=== PATIENT | male | born 1980 | race Caucasian/White ===

== ENCOUNTER 2023-03-13 18:33 | Inpatient (IN) | payer MEDICAID ==
[~2023-03-13] VITALS: Ht 180.3 cm; Wt 80.0 kg
--- NOTE | 2023-03-13 18:40 | NUR ---
pt recieved 80mg propofol pushes IV en route by [facility] physician on ambulance and precedex gtt started (4mcg/ml concentration) at 1mcg/kg/hr enroute. pt also recieved 1L NS IV bolus enroute.
[2023-03-13] MEDS ORDERED: propofol 1000mg/100ml bottle 100 ML IV ONE (18:43)
[2023-03-13] MEDS ORDERED: normal saline 1000ml 1,000 ML IV ONE (18:45)
[2023-03-13] MEDS ORDERED: propofol 1000mg/100ml bottle 100 ML IV PRN (19:00)
--- NOTE | 2023-03-13 19:03 | NUR ---
ICU CONSULT PUT IN. AWAITING CONNECTION THROUGH TELE COMMUNICATION.
[2023-03-13 19:05] LABS: BASOPHILS % (AUTO) 0.2 % (0-1); EOSINOPHILS % (AUTO) 0.1 % (0-6); HEMATOCRIT 42.1 % (42.0-52.0); HEMOGLOBIN 13.9 g/dl (14.0-17.9); LYMPHOCYTES # (AUTO) 0.8 X10'3 (1.1-4.8); LYMPHOCYTES % (AUTO) 7.5 % (21-51); MEAN CORPUSCULAR HEMOGLOBIN 28.9 PG (27.0-31.0); MEAN CORPUSCULAR VOLUME 87.6 FL (78-98); MONOCYTES # (AUTO) 0.2 X10'3 (0-0.9); MONOCYTES % (AUTO) 1.7 % (2-12); NEUTROPHILS % (AUTO) 90.5 % (42-75); PLATELET COUNT 241 X10'3 (140-440)
[2023-03-13 19:16] LABS: ALANINE AMINOTRANSFERASE 32 U/L (12-78); ALBUMIN 3.3 G/DL (3.4-5.0); ALBUMIN/GLOBULIN RATIO 1.2 (1.1-1.5); ALKALINE PHOSPHATASE 62 IU/L (46-116); ANION GAP 12 (8-16); ASPARTATE AMINO TRANSFERASE 55 U/L (10-37); BILIRUBIN,TOTAL 0.8 MG/DL (0.1-1.0); BLOOD UREA NITROGEN 19 MG/DL (7-18); BUN/CREATININE RATIO 23.2 (10.0-20.0); CALCIUM 7.5 MG/DL (8.5-10.1); CHLORIDE 110 MMOL/L (99-107); CREATININE 0.82 MG/DL (0.60-1.10); GLUCOSE 120 MG/DL (70-104); POTASSIUM 4.2 MMOL/L (3.5-5.1); SODIUM 142 MMOL/L (135-145); TOTAL CARBON DIOXIDE 19.8 MMOL/L (24-32); TOTAL PROTEIN 6.1 G/DL (6.4-8.2); eGFR > 90 ML/MIN
[2023-03-13 19:18] LABS: APTT 30 SECONDS (22-32)
[2023-03-13] MEDS: dexmedetomidin/NS 400mcg/100ml 100 ML IV SCH (19:25)
[2023-03-13 19:26] LABS: LIPASE < 50 U/L (73-393); MAGNESIUM 1.7 MG/DL (1.5-2.4)
[2023-03-13 19:26] LABS: ABG BASE EXCESS -5.6 mmol/L (-2.0-2.0); ABG HCO3 18.9 mmol/L (22.0-26.0); ABG OXYGEN SATURATION 98.8 % (94-97); ABG PCO2 (T) 34.6 mmHg (35.0-48.0); ABG PO2 (T) 179.4 mmHg (75.0-100.0); ALLEN'S TEST Modified; FCOHb 0.1 % (0.0-3.9); FMetHb 0.4 % (0.0-1.5); FO2Hb 98.3 % (94-97); TOTAL HEMOGLOBIN 15.2 G/dl (14.0-17.9)
--- NOTE | 2023-03-13 19:26 | NUR ---
ICU CONSULT SENT OUT AGAIN DUE TO NO RESPONSE.
[2023-03-13 19:28] LABS: CKMB RELATIVE INDEX 3.3 RATIO (0-2.5); CREATINE KINASE 1331 U/L (39-308); ETHANOL < 0.010 GM/DL (0.0-0.010)
[2023-03-13 19:45] LABS: CLARITY,URINE CLEAR (Clear); COLOR,URINE YELLOW (Yellow); GLUCOSE, URINE NEGATIVE (Neg); KETONES,URINE NEGATIVE (Neg); LEUKOCYTE ESTERASE ,URINE NEGATIVE (Neg); NITRITES, URINE NEGATIVE (Neg); OCCULT BLOOD,URINE TRACE-INTACT (Neg); PROTEIN,URINE NEGATIVE (Neg); UROBILINOGEN,URINE 0.2 E.U/dL (0.2-1.0)
[2023-03-13] MEDS ORDERED: haloperidol lactate 5mg/ml inj IM PRN (19:50)
[2023-03-13 19:59] LABS: URINE AMPHETAMINE SCREEN POSITIVE (Neg); URINE BARBITUATE SCREEN NEGATIVE (Neg); URINE BENZODIAZEPINES SCREEN POSITIVE (Neg); URINE CANNABINOID SCREEN POSITIVE (Neg); URINE COCAINE SCREEN NEGATIVE (Neg); URINE METHADONE SCREEN NEGATIVE (Neg); URINE OPIATE SCREEN NEGATIVE (Neg); URINE PHENCYCLIDINE SCREEN NEGATIVE (Neg)
[2023-03-13 20:07] LABS: UA COLLECTION TYPE FOLEY CATH
[2023-03-13 20:09] LABS: BACTERIA,URINE NONE SEEN /HPF (Neg); RBC,URINE 0-2 /HPF (0-2); SQUAMOUS EPITHELIAL CELL,UR NONE SEEN /LPF (FEW); WBC,URINE 0-4 /HPF (0-4)
[2023-03-13] MEDS: dextrose 5%-lactated ringers 1,000 ML IV SCH (20:20)
--- NOTE | 2023-03-13 20:49 | NUR ---
PT RETURNED TO ROOM FROM CT, MD SHETTY AWARE OF LOW HR RANGE FROM 34 TO 52, STATES ITS DUE TO PRECEDEX GTT. PT AGITATED AT CT, PRECEDEX GTT INCREASED.
[2023-03-13] MEDS ORDERED: sodium bicarbonate (8.4%) inj. 1 MEQ/ML ML ONE (21:03)
[2023-03-13] MEDS ORDERED: sodium bicarbonate (8.4%) inj. 1 MEQ/ML ML IV ONE (21:10)
[2023-03-13] MEDS ORDERED: BUPR1FIL3 SL (21:51)
[2023-03-13] MEDS ORDERED: IBUP-1984 PO (21:51)
[2023-03-13] MEDS ORDERED: FLO0.4C PO (21:51)
[2023-03-13] MEDS ORDERED: AMLO5TAB16 PO (21:51)
--- NOTE | 2023-03-13 22:58 | NUR ---
DR MENDOZA NOTIFIED OF CONTINUED LOW HR DOWN TO [address] MENDOZA, DECREASE PRECEDEX FURTHER AND GIVE HALDOL PRN FOR AGITATION. NO NEW ORDERS RECIEVED. PT AGITATED WITH LAB DRAW FOR BLOOD CULTURES BUT DOES CALM DOWN AFTER TO RASS 0.
--- NOTE | 2023-03-13 23:09 | NUR ---
PT REPOSITIONED IN BED, PT LAYING ON LEFT SIDE, PILLOWS PLACED UNDER ARMS AND HEELS FLOATED. SCDS APPLIED TO BILAT LEGS.
--- NOTE | 2023-03-14 00:59 | NUR ---
pt repositioned to back, heels floated, soft restraints in place. warm blankets given.
--- NOTE | 2023-03-14 03:00 | NUR ---
pt repositioned self in bed back to left side. spontaneous respirations, restraints in place, scds on and heels floated.
--- NOTE | 2023-03-14 05:00 | NUR ---
pt repositioned to back, spontaneous respirations.
--- NOTE | 2023-03-14 05:20 | NUR ---
pt repositioned self back to left side, spontaneous respirations, when this rn attempted to reposition legs, pt moved both legs to positon of comfort, heels floated.
--- NOTE | 2023-03-14 05:40 | NUR ---
icu rm assigned for after shift change, unable to call report to floor a this time.
[2023-03-14] MEDS: dextrose 5%-lactated ringers 1,000 ML IV SCH ×3 (06:17→23:57)
--- NOTE | 2023-03-14 06:41 | NUR ---
SBAR TO RUDI, RN. PT NOT GOING TO ICU YET.
[2023-03-14] MEDS: dexmedetomidin/NS 400mcg/100ml 100 ML IV SCH (07:20)
--- NOTE | 2023-03-14 07:46 | NUR ---
RN TOOK PT HOME MED SUBOXONE TO PHARMACY FOR SAFE KEEPING. 1- 12MG/3MG AND 7- 8MG/2MG TAKEN BAG #[id number].
--- NOTE | 2023-03-14 07:54 | NUR ---
PT IS DROWSY IN GURNEY/SLEEPING INTERM/TOSSING/STILL WAKING PULLING AT IV LINES AND AVALOS. RN CALLED DR PÉREZ AND REQ RENEWABLE RESTRAINT ORD. PER DR PÉREZ RN MAY ENTER ORD AND CONT RESTRAINTS.
--- NOTE | 2023-03-14 11:30 | NUR ---
RN TITRATED PRECEDEX DOWN TO 0.1 MCG/KG/HR. RN WILL CONTINUE TO MONITOR PT.
--- NOTE | 2023-03-14 12:15 | NUR ---
RN TITRATED PRECEDEX BACK UP TO 0.2 MCG/KG/HR D/T BP INCREASED TO 164/108 AND PT BECAME MORE RESTLESS. PT IS STILL REQUIRING REORIENTING WHEN WAKING AND IS TRYING TO PULL AT LINES AND [employer]. RN WILL CONTINUE TO MONITOR.
--- NOTE | 2023-03-14 13:05 | NUR ---
DR PANG AT BEDSIDE. PER DR PANG TITRATE PRECEDEX TO 0.1 MCG/KG/HR AND NOTIFY IF SYS BP GREATER THAN 160.
[2023-03-14] MEDS: amLODIPine 5mg tablet PO SCH (13:25)
[2023-03-14] MEDS: tamsulosin 0.4mg capsule PO SCH (13:25)
--- NOTE | 2023-03-14 13:28 | NUR ---
PER DR PANG STOP PRECEDEX DRIP. RN SHOULD ORD HYDRALAZINE 10MG Q 1 HR PRN FOR SYS GREATER THAN 160.
[2023-03-14] MEDS ORDERED: hydrALAZINE 20mg/ml inj. IV PRN (13:45)
[2023-03-14 14:05] LABS: BASOPHILS % (AUTO) 0.2 % (0-1); EOSINOPHILS % (AUTO) 0.5 % (0-6); HEMATOCRIT 43.2 % (42.0-52.0); HEMOGLOBIN 14.4 g/dl (14.0-17.9); LYMPHOCYTES # (AUTO) 0.9 X10'3 (1.1-4.8); LYMPHOCYTES % (AUTO) 12.5 % (21-51); MEAN CORPUSCULAR HEMOGLOBIN 29.2 PG (27.0-31.0); MEAN CORPUSCULAR HGB CONC 33.4 g/dL (33.0-36.5); MEAN CORPUSCULAR VOLUME 87.5 FL (78-98); MEAN PLATELET VOLUME 7.2 FL (7.4-10.4); MONOCYTES # (AUTO) 0.4 X10'3 (0-0.9); MONOCYTES % (AUTO) 5.4 % (2-12); NEUTROPHILS # (AUTO) 5.9 X10'3 (1.8-7.7); NEUTROPHILS % (AUTO) 81.4 % (42-75); PLATELET COUNT 251 X10'3 (140-440); RED BLOOD COUNT 4.93 X10'6 (4.70-6.10); WHITE BLOOD COUNT 7.3 X10'3 (4.5-11.0)
[2023-03-14] MEDS ORDERED: LORazepam 2 mg/ml vial IV PRN (14:10)
[2023-03-14] MEDS ORDERED: haloperidol 5mg tablet PO PRN (14:10)
[2023-03-14] MEDS ORDERED: haloperidol lactate 5mg/ml inj IM PRN (14:10)
[2023-03-14 14:14] LABS: ALANINE AMINOTRANSFERASE 30 U/L (12-78); ALBUMIN 3.1 G/DL (3.4-5.0); ALBUMIN/GLOBULIN RATIO 1.1 (1.1-1.5); ALKALINE PHOSPHATASE 59 IU/L (46-116); ANION GAP 6 (8-16); ASPARTATE AMINO TRANSFERASE 44 U/L (10-37); BLOOD UREA NITROGEN 16 MG/DL (7-18); BUN/CREATININE RATIO 19.5 (10.0-20.0); CALCIUM 8.3 MG/DL (8.5-10.1); CHLORIDE 105 MMOL/L (99-107); CREATINE KINASE 849 U/L (39-308); CREATININE 0.82 MG/DL (0.60-1.10); GLUCOSE 115 MG/DL (70-104); MAGNESIUM 1.7 MG/DL (1.5-2.4); PHOSPHORUS 2.6 MG/DL (2.3-4.5); POTASSIUM 3.7 MMOL/L (3.5-5.1); SODIUM 136 MMOL/L (135-145); TOTAL CARBON DIOXIDE 25.5 MMOL/L (24-32); TOTAL PROTEIN 5.9 G/DL (6.4-8.2); eGFR > 90 ML/MIN
--- NOTE | 2023-03-14 14:38 | NUR ---
RN TRIED TO CALL REPORT. ONCE THE FLOOR DETERMINES WHAT RN WILL TAKE THE PT THAT RN WILL CALL BACK FOR REPORT.
--- NOTE | 2023-03-14 14:44 | NUR ---
PER FLORECITA PHARMACIST PRECEDEX DOES NOT REQUIRE WASTE. RN WILL DISCARD IN [employer].
--- NOTE | 2023-03-14 14:45 | NUR ---
COMPUTER MOUSE BROKEN. MEDS MANUALLY SIGNED OFF. WORK ORD REQ MADE.
--- NOTE | 2023-03-14 14:59 | NUR ---
PT HAVING DIARRHEA AND TRYING TO JUMP OUT BED. RN WILL HELP PT AND THEN CALL REPORT.
--- NOTE | 2023-03-14 15:25 | NUR ---
Patient in room U 3025. I have received report from Summer RN and had the opportunity to ask questions and assume patient care.Pt following instruction. Amb steady and by himself from gurney to bed. No distress. Back to sleep after skin check. Addendum: 03/14/23 at 1623 by Kiara Mackey RN Amended: Links added.
[2023-03-14 15:45] VITALS: BP 131/84
[2023-03-14] MEDS: ibuprofen tablet 400 MG TABLET PO SCH ×2 (16:00→23:48)
[2023-03-14 18:00] VITALS: BP 143/97
--- NOTE | 2023-03-14 18:19 | NUR ---
Problems reprioritized. Patient report given, questions answered & plan of care reviewed with Prudence RN.Pt visiting with family in room. Pt denies needs. Addendum: 03/14/23 at 1819 by Kiara Mackey RN Amended: Links added. Addendum: 03/14/23 at 1820 by Kiara Mackey RN wrong PT
--- NOTE | 2023-03-14 18:24 | NUR ---
Problems reprioritized. Patient report given, questions answered & plan of care reviewed with Marixa GIRON. Pt resting, Watching TV. Call light in reach. Addendum: 03/14/23 at 1827 by Kiara Mackey RN Amended: Links added.
[2023-03-14] MEDS: buprenorphine/naloxone 8MG-2MG SUBlingual film SL SCH (20:38)
[2023-03-14 22:00] VITALS: BP_SYST 112; BP_SYST 125; BP_DIAS 65; BP_DIAS 74
[2023-03-15] VITALS (7 sets, daily range): BP systolic 112–143; BP diastolic 65–97
--- NOTE | 2023-03-15 06:26 | NUR ---
Patient in room PCU 3025. I have received report from Marixa and had the opportunity to ask questions and assume patient care.
[2023-03-15] MEDS: amLODIPine 5mg tablet PO SCH (08:08)
[2023-03-15] MEDS: buprenorphine/naloxone 8MG-2MG SUBlingual film SL SCH ×3 (08:08→20:36)
[2023-03-15] MEDS: ibuprofen tablet 400 MG TABLET PO SCH ×3 (08:08→23:59)
[2023-03-15] MEDS: tamsulosin 0.4mg capsule PO SCH (08:08)
[2023-03-15] MEDS: dextrose 5%-lactated ringers 1,000 ML IV SCH ×2 (09:29→19:25)
--- NOTE | 2023-03-15 12:04 | NUR ---
RE: Donna in 2061K, pt feels like he's having withdrawals, ativan given, he wants more suboxone and the nunez out, please see Bette [phone]
--- NOTE | 2023-03-15 18:19 | NUR ---
Problems reprioritized. Patient report given, questions answered & plan of care reviewed with
--- NOTE | 2023-03-15 18:31 | NUR ---
Patient in room PCU 3025. I have received report from Bette GIRON and had the opportunity to ask questions and assume patient care.
[2023-03-15] MEDS ORDERED: Melatonin 3mg tablet PO SCH (21:00)
[2023-03-16 02:00] VITALS: BP 128/84
--- NOTE | 2023-03-16 02:32 | NUR ---
AGREE WITH LAYER OUT PLATE GLASS ASSESSMENTS
[2023-03-16] MEDS: dextrose 5%-lactated ringers 1,000 ML IV SCH (04:25)
[2023-03-16 06:00] VITALS: BP 143/99
--- NOTE | 2023-03-16 06:07 | NUR ---
Problems reprioritized. Patient report given, questions answered & plan of care reviewed with Bette GIRON.
--- NOTE | 2023-03-16 06:34 | NUR ---
Patient in room PCU 3025. I have received report from Kyra and had the opportunity to ask questions and assume patient care.
[2023-03-16] MEDS: ibuprofen tablet 400 MG TABLET PO SCH (07:16)
[2023-03-16] MEDS: amLODIPine 5mg tablet PO SCH (07:16)
[2023-03-16] MEDS: tamsulosin 0.4mg capsule PO SCH (07:16)
[2023-03-16] MEDS: buprenorphine/naloxone 8MG-2MG SUBlingual film SL SCH ×2 (07:17→13:56)
--- NOTE | 2023-03-16 09:33 | NUR ---
Re: Donna in 0115E, pt requesting a nicotine patch, please advise thank you [phone]
[2023-03-16 11:00] VITALS: BP 146/94
[2023-03-16] MEDS ORDERED: nicotine 14mg patch - 24hr TD ONE (11:35)
--- NOTE | 2023-03-16 12:11 | NUR ---
Met with patient in regards to substance use and to see if patient was interested in resources for treatment options. Patient would like to start Suboxone. I gave patient a card for [facility] and my card to call me if he has any questions.
--- NOTE | 2023-03-16 13:03 | NUR ---
PAGER ID: [phone] MESSAGE: RE: Donna in [id number], SS has seen pt, he wants to DC, please advise Bette
[2023-03-16] MEDS ORDERED: LORazepam 2 mg/ml vial IV PRN (14:10)
[2023-03-16] MEDS ORDERED: LORazepam 1 MG tablet PO PRN (14:10)
--- NOTE | 2023-03-16 15:25 | NUR ---
Coordination with patient's PHP resulted in a ride home to [place] with a company called [employer]. ETA 16:30. Advised PHP to have [employer] call the floor when they arrive so that patient can be transported downstairs. [employer] [facility] Care coordination
--- NOTE | 2023-03-16 16:14 | NUR ---
Discharge instructions were reviewed with patient. SS did see patient, he was provided with information for [facility]) to assist with residential living for recovery. Patient collected his paperwork, was dressed in scrub pants and wheeled downstairs to be transported home via [facility]. Patient's home meds were returned to him as he was being wheeled downstairs by staff.
[2023-03-18] MEDS ORDERED: LORazepam 2 mg/ml vial IV PRN (14:10)
[2023-03-18] MEDS ORDERED: LORazepam 1 MG tablet PO PRN (14:10)
== END 2023-03-16 16:08 | disposition home or self-care (01) | DRG 812 ==
LOC: ER 18:34 → ED HOLD 21:11 → PCU 3S 03-14 15:37
PROVIDERS: ADMIT Internal Medicine Critical Care Medicine; ATTEND Internal Medicine
DX: T40.411A Poisoning by fentanyl or fentanyl analogs, accidental (unintentional), initial encounter (principal); G93.41 Metabolic encephalopathy; F11.23 Opioid dependence with withdrawal; G89.29 Other chronic pain; M54.9 Dorsalgia, unspecified; R74.8 Abnormal levels of other serum enzymes; M62.82 Rhabdomyolysis; Z88.0 Allergy status to penicillin; Z88.8 Allergy status to other drugs, medicaments and biological substances; Y92.89 Other specified places as the place of occurrence of the external cause
CPT/HCPCS: 36415; 36600; 70450; 80053; 80305; 80320; 81001; 82550; 82553; 82803; 83605; 83690; 83735; 83874; 84100; 84478; 85018; 85025; 85610; 85730; 87040; 87081; 93005; 99285; A6213; G0378; J2060; J2704; J3490; J7030; J7070; J7121

== ENCOUNTER 2024-12-13 15:24 | Inpatient (IN) | payer MEDICAID ==
[~2024-12-13] VITALS: Ht 152.4 cm; Wt 81.9 kg
[~2024-12-13 15:24] MED LIST: AMLO5TAB16 PO; BUPR1FIL3 SL; FLO0.4C PO; IBUP-1984 PO
[2024-12-13 16:16] LABS: BASOPHILS # (AUTO) 0.1 X10'3 (0-0.2); BASOPHILS % (AUTO) 0.6 % (0-1); EOSINOPHILS # (AUTO) 0.2 X10'3 (0-0.9); EOSINOPHILS % (AUTO) 1.4 % (0-6); HEMATOCRIT 39.8 % (42.0-52.0); HEMOGLOBIN 12.8 g/dl (14.0-17.9); LYMPHOCYTES # (AUTO) 1.1 X10'3 (1.1-4.8); LYMPHOCYTES % (AUTO) 8.9 % (21-51); MEAN CORPUSCULAR HEMOGLOBIN 28.6 PG (27.0-31.0); MEAN CORPUSCULAR HGB CONC 32.1 g/dL (33.0-36.5); MEAN CORPUSCULAR VOLUME 88.9 FL (78-98); MEAN PLATELET VOLUME 6.6 FL (7.4-10.4); MONOCYTES % (AUTO) 7.8 % (2-12); NEUTROPHILS # (AUTO) 10.3 X10'3 (1.8-7.7); NEUTROPHILS % (AUTO) 81.3 % (42-75); PLATELET COUNT 431 X10'3 (140-440); RED BLOOD COUNT 4.48 X10'6 (4.70-6.10); RED CELL DISTRIBUTION WIDTH 14.8 % (11.5-14.5); WHITE BLOOD COUNT 12.7 X10'3 (4.5-11.0)
[2024-12-13 16:20] LABS: BILIRUBIN,URINE NEGATIVE (Neg); CLARITY,URINE CLEAR (Clear); COLOR,URINE YELLOW (Yellow); GLUCOSE, URINE NEGATIVE (Neg); KETONES,URINE TRACE mg/dl (Neg); LEUKOCYTE ESTERASE ,URINE NEGATIVE (Neg); NITRITES, URINE NEGATIVE (Neg); OCCULT BLOOD,URINE NEGATIVE (Neg); PROTEIN,URINE NEGATIVE (Neg); UROBILINOGEN,URINE 0.2 E.U/dL (0.2-1.0)
[2024-12-13 16:24] LABS: UA COLLECTION TYPE CLN CATCH MIDSTREAM
[2024-12-13 16:35] LABS: ALANINE AMINOTRANSFERASE 25 U/L (12-78); ALBUMIN 2.9 G/DL (3.4-5.0); ALBUMIN/GLOBULIN RATIO 0.8 (1.1-1.5); ALKALINE PHOSPHATASE 81 IU/L (46-116); ANION GAP 7 (8-16); ASPARTATE AMINO TRANSFERASE 28 U/L (10-37); BILIRUBIN,TOTAL 0.5 MG/DL (0.1-1.0); BLOOD UREA NITROGEN 27 MG/DL (7-18); BUN/CREATININE RATIO 42.2 (10.0-20.0); CALCIUM 7.9 MG/DL (8.5-10.1); CHLORIDE 107 MMOL/L (99-107); CREATININE 0.64 MG/DL (0.60-1.10); GLUCOSE 79 MG/DL (70-104); POTASSIUM 4.2 MMOL/L (3.5-5.1); SODIUM 142 MMOL/L (135-145); TOTAL CARBON DIOXIDE 28.1 MMOL/L (24-32); TOTAL PROTEIN 6.7 G/DL (6.4-8.2); eCRCL 154 ML/MIN; eGFR > 90 ML/MIN
[2024-12-13 16:43] LABS: LIPASE 23 U/L (16-77); PRO BRAIN NATRIURETIC PEPTIDE 116 PG/ML (0-125)
[2024-12-13 17:05] LABS: PROTHROMBIN TIME 10.1 SECONDS (9.0-12.0)
[2024-12-13] MEDS: propofol 10mg/ml 20ml vial IV ONE (17:22)
[2024-12-13] MEDS: propofol inj 20 ML IV ONE (17:22)
[2024-12-13] MEDS: ondansetron/PF 4mg/2ml inj IV ONE (17:32)
[2024-12-13] MEDS ORDERED: HYDROcodone/acetaminophen 5mg/325mg tablet PO PRN (18:30)
[2024-12-13] MEDS ORDERED: HYDROcodone/acetaminophen 10/325mg tab PO PRN (18:30)
[2024-12-13] MEDS ORDERED: haloperidol lactate 5mg/ml inj IM PRN (18:30)
[2024-12-13] MEDS ORDERED: potassium Cl 40MEQ/1/2NS 520ml 520 ML IV PRN (18:30)
[2024-12-13] MEDS ORDERED: dextrose 50%-water 50ml dispensing syringe IV PRN (18:30)
[2024-12-13] MEDS ORDERED: magnesium sulf-water 2g/50mL 50 ML IV PRN (18:30)
[2024-12-13] MEDS ORDERED: HYDROmorphone inj. 0.5 MG/0.5 ML DISP.SYRIN IV PRN (18:30)
[2024-12-13] MEDS ORDERED: haloperidol 5mg tablet PO PRN (18:30)
[2024-12-13] MEDS ORDERED: acetaminophen 325mg tablet PO PRN ×2 (18:30)
[2024-12-13] MEDS ORDERED: HYDROmorphone/PF 0.2 MG/ML SYRINGE IV PRN (18:30)
[2024-12-13] MEDS ORDERED: potassium Cl 20 mEq SR tablet PO PRN ×2 (18:30)
[2024-12-13] MEDS ORDERED: magnesium Cl slow-release 64mg tablet PO PRN (18:30)
[2024-12-13] MEDS ORDERED: magnesium sulf-water 4G/100mL 100 ML IV PRN (18:30)
[2024-12-13] MEDS ORDERED: LORazepam 2 mg/ml vial IV PRN (18:30)
[2024-12-13] MEDS ORDERED: ondansetron/PF 4mg/2ml inj IV PRN ×2 (18:30→19:05)
[2024-12-13 18:42] LABS: ETHANOL < 10 MG/DL (<10)
[2024-12-13] MEDS: normal saline 1000ml 1,000 ML IV SCH ×2 (18:44→23:25)
[2024-12-13] MEDS: metroNIDAZOLE-Flagyl 500mg/NS 100 ML IV SCH (18:53)
[2024-12-13] MEDS: levoFLOXACIN-Levaquin 500mg/D5 100 ML IV ONE (18:54)
[2024-12-13] MEDS ORDERED: hydrALAZINE 20mg/ml inj. IV PRN (19:05)
[2024-12-13] MEDS ORDERED: fentaNYL/PF 50MCG/1 ML 2ML syringe IV PRN ×2 (19:05)
[2024-12-13] MEDS ORDERED: labetalol 20mg/4ml (5mg/ml) syringe IV PRN (19:05)
[2024-12-13] MEDS ORDERED: morphine 2 MG/ML inj. syringe IV PRN (19:05)
[2024-12-13] MEDS ORDERED: morphine 4 MG/ML inj SYRINge IV PRN (19:05)
[2024-12-13 19:21] LABS: URINE AMPHETAMINE SCREEN POSITIVE (Neg); URINE BARBITUATE SCREEN NEGATIVE (Neg); URINE BENZODIAZEPINES SCREEN NEGATIVE (Neg); URINE CANNABINOID SCREEN POSITIVE (Neg); URINE COCAINE SCREEN NEGATIVE (Neg); URINE METHADONE SCREEN NEGATIVE (Neg); URINE OPIATE SCREEN POSITIVE (Neg); URINE PHENCYCLIDINE SCREEN NEGATIVE (Neg)
[2024-12-13] MEDS: K and/or MAG REPLACEMENT MC SCH (20:00)
[2024-12-13] MEDS ORDERED: vancomycin/NS 1 GM ADD-VANTAGE 250 ML X 1 DOSE IV SCH (20:00)
[2024-12-13] MEDS: docusate sod 100mg capsule PO SCH (20:00)
[2024-12-13] MEDS ORDERED: BUPIVAcaine/PF 2.5mg/ml (0.25%) 10ml vial ONE ×2 (21:16→22:50)
[2024-12-13] MEDS ORDERED: LIDOcaine 1% (10mg/ml)w/preservative inj. 20ml MDV ONE (21:16)
[2024-12-13] MEDS ORDERED: sevoflurane 250ml liquid IH ONE (21:32)
[2024-12-13] MEDS ORDERED: midazolam 1 mg/ML 2ml injection ONE (21:33)
[2024-12-13] MEDS ORDERED: propofol inj 20 ML IV ONE (21:33)
[2024-12-13] MEDS ORDERED: fentaNYL/PF 50MCG/1 ML 2ML syringe ONE ×2 (21:33→22:22)
[2024-12-13] MEDS ORDERED: ondansetron/PF 4mg/2ml inj ONE (21:34)
[2024-12-13] MEDS ORDERED: rocuronium 10mg/ml inj IV ONE (21:34)
[2024-12-13] MEDS ORDERED: LIDOcaine 1%/PF 5ML 10 MG/ML VIAL ONE (21:34)
[2024-12-13] MEDS ORDERED: sugammadex 200mg/2ml injection IV ONE (21:36)
[2024-12-13] MEDS ORDERED: acetaminophen 1,000mg/100ml IV 100 ML IV ONE (21:52)
[2024-12-13] MEDS: BUPIVAcaine/PF 2.5mg/ml (0.25%) 10ml vial IJ ONE (22:01)
[2024-12-13] MEDS ORDERED: BUPIVACAINE liposomal/PF 13.3 MG/ML 10mL vial IM ONE ×2 (22:50→22:52)
[2024-12-13] MEDS: BUPIVACAINE liposomal/PF 13.3 MG/ML 10mL vial IM ONE (23:03)
[2024-12-13 23:25] VITALS: BP 129/81; PULSE 70; RESP 16; O2SAT 100
[2024-12-13] MEDS ORDERED: naloxone 0.4 mg/ml inj IV PRN (23:25)
[2024-12-13 23:30] VITALS: BP 119/87; PULSE 73; RESP 16; O2SAT 100
[2024-12-13 23:40] VITALS: BP 129/84; PULSE 73; RESP 14; O2SAT 100
[2024-12-13 23:50] VITALS: BP 120/83; PULSE 70; RESP 12; O2SAT 100
[2024-12-13] MEDS: HYDROmorph/NS 0.2 mg/ml PCA 100 ML IV SCH (23:51)
[2024-12-13] MEDS: ringers solution, lacted 1,000 ML IV SCH (23:52)
[2024-12-14] VITALS (20 sets, daily range): BP systolic 125–155; BP diastolic 83–101; PULSE 67–86; RESP 13–23; TEMP 97.8–100.1; O2SAT 93–100
[2024-12-14] MEDS: silver sulfadiazine cream 50gm TP SCH (04:07)
[2024-12-14] MEDS: vancomycin/NS 1 GM ADD-VANTAGE 250 ML X 1 DOSE IV SCH (04:07)
[2024-12-14] MEDS: thiamine 100mg/ml 2ml inj. IV SCH (04:07)
[2024-12-14] MEDS: sennosides/docusate sodium tablet PO SCH (08:33)
[2024-12-14] MEDS: docusate sod 100mg capsule PO SCH (08:34)
[2024-12-14] MEDS: amLODIPine 5mg tablet PO SCH (08:38)
[2024-12-14] MEDS: folic acid 1mg/0.2ml inj IV SCH (09:13)
[2024-12-14] MEDS: levoFLOXACIN-Levaquin 500mg/D5 100 ML IV SCH (09:47)
[2024-12-14 10:26] LABS: BASOPHILS % (AUTO) 0.2 % (0-1); EOSINOPHILS % (AUTO) 0 % (0-6); HEMATOCRIT 37.2 % (42.0-52.0); LYMPHOCYTES # (AUTO) 0.7 X10'3 (1.1-4.8); LYMPHOCYTES % (AUTO) 5.5 % (21-51); MEAN CORPUSCULAR HEMOGLOBIN 28.3 PG (27.0-31.0); MEAN CORPUSCULAR HGB CONC 32.2 g/dL (33.0-36.5); MEAN PLATELET VOLUME 6.5 FL (7.4-10.4); MONOCYTES # (AUTO) 0.6 X10'3 (0-0.9); MONOCYTES % (AUTO) 5.2 % (2-12); NEUTROPHILS % (AUTO) 89.1 % (42-75); PLATELET COUNT 442 X10'3 (140-440); RED BLOOD COUNT 4.22 X10'6 (4.70-6.10); RED CELL DISTRIBUTION WIDTH 14.9 % (11.5-14.5); WHITE BLOOD COUNT 12.4 X10'3 (4.5-11.0)
[2024-12-14 10:40] LABS: ALANINE AMINOTRANSFERASE 21 U/L (12-78); ALBUMIN 2.2 G/DL (3.4-5.0); ALBUMIN/GLOBULIN RATIO 0.6 (1.1-1.5); ALKALINE PHOSPHATASE 68 IU/L (46-116); ANION GAP 6 (8-16); ASPARTATE AMINO TRANSFERASE 22 U/L (10-37); BILIRUBIN,TOTAL 0.6 MG/DL (0.1-1.0); BLOOD UREA NITROGEN 14 MG/DL (7-18); BUN/CREATININE RATIO 22.2 (10.0-20.0); CALCIUM 7.9 MG/DL (8.5-10.1); CHLORIDE 105 MMOL/L (99-107); CREATININE 0.63 MG/DL (0.60-1.10); GLUCOSE 124 MG/DL (70-104); POTASSIUM 4.2 MMOL/L (3.5-5.1); SODIUM 138 MMOL/L (135-145); TOTAL CARBON DIOXIDE 27.4 MMOL/L (24-32); TOTAL PROTEIN 5.6 G/DL (6.4-8.2); eCRCL 156 ML/MIN; eGFR > 90 ML/MIN
[2024-12-14] MEDS: HYDROcodone/acetaminophen 10/325mg tab PO ONE (12:47)
[2024-12-14] MEDS ORDERED: HYDROcodone/acetaminophen 10/325mg tab PO PRN (16:45)
[2024-12-14] MEDS: HYDROmorph/NS 0.2 mg/ml PCA 100 ML IV SCH (19:00)
[2024-12-14] MEDS ORDERED: VANCOMYCIN LEVEL IV ONE (19:30)
[2024-12-14] MEDS: HYDROmorphone 1 mg/ml syringe IV ONE (20:51)
[2024-12-14] MEDS: heparin, porcine 5000 units/ml vial SQ SCH (20:54)
[2024-12-14] MEDS: mag hydrox/Alum hydrox/simeth 30ml oral suspension PO PRN (21:10)
[2024-12-15] MEDS: VANCOMYCIN LEVEL IV ONE (04:22)
[2024-12-15 06:47] VITALS: BP 132/75; PULSE 79; RESP 15; TEMP 98.5; O2SAT 100
[2024-12-15] MEDS: calcium carbonate 500mg chew tablet PO SCH (07:40)
[2024-12-15 08:38] LABS: BASOPHILS % (AUTO) 0.3 % (0-1); EOSINOPHILS # (AUTO) 0.3 X10'3 (0-0.9); EOSINOPHILS % (AUTO) 2.8 % (0-6); HEMATOCRIT 33.9 % (42.0-52.0); HEMOGLOBIN 11.5 g/dl (14.0-17.9); LYMPHOCYTES # (AUTO) 1.1 X10'3 (1.1-4.8); MEAN CORPUSCULAR HEMOGLOBIN 29.9 PG (27.0-31.0); MEAN CORPUSCULAR HGB CONC 33.9 g/dL (33.0-36.5); MEAN CORPUSCULAR VOLUME 88.2 FL (78-98); MEAN PLATELET VOLUME 6.4 FL (7.4-10.4); MONOCYTES # (AUTO) 0.9 X10'3 (0-0.9); MONOCYTES % (AUTO) 9.8 % (2-12); NEUTROPHILS # (AUTO) 7.1 X10'3 (1.8-7.7); NEUTROPHILS % (AUTO) 75.1 % (42-75); PLATELET COUNT 365 X10'3 (140-440); RED BLOOD COUNT 3.84 X10'6 (4.70-6.10); WHITE BLOOD COUNT 9.5 X10'3 (4.5-11.0)
[2024-12-15 08:52] LABS: ALANINE AMINOTRANSFERASE 14 U/L (12-78); ALBUMIN 2.1 G/DL (3.4-5.0); ALBUMIN/GLOBULIN RATIO 0.7 (1.1-1.5); ALKALINE PHOSPHATASE 72 IU/L (46-116); ANION GAP 5 (8-16); ASPARTATE AMINO TRANSFERASE 17 U/L (10-37); BILIRUBIN,TOTAL 0.7 MG/DL (0.1-1.0); BLOOD UREA NITROGEN 19 MG/DL (7-18); BUN/CREATININE RATIO 26.4 (10.0-20.0); CHLORIDE 105 MMOL/L (99-107); CREATININE 0.72 MG/DL (0.60-1.10); GLUCOSE 93 MG/DL (70-104); POTASSIUM 3.9 MMOL/L (3.5-5.1); SODIUM 138 MMOL/L (135-145); TOTAL CARBON DIOXIDE 28.2 MMOL/L (24-32); TOTAL PROTEIN 5.3 G/DL (6.4-8.2); eCRCL 91 ML/MIN; eGFR > 90 ML/MIN
[2024-12-15 09:01] LABS: CALCIUM 7.4 MG/DL (8.5-10.1)
[2024-12-15] MEDS: VANCOMYCIN/WATER FOR INJ (PEG) 1.25GM/250 ML IVPB IV SCH (13:14)
[2024-12-15 18:00] VITALS: BP 132/87; PULSE 70; RESP 16; TEMP 98.7; O2SAT 96
[2024-12-15] MEDS ORDERED: LORazepam 1 MG tablet PO PRN (18:30)
[2024-12-15] MEDS ORDERED: LORazepam 2 mg/ml vial IV PRN (18:30)
[2024-12-15] MEDS: PCA WASTE DOCUMENTATION 1 MG ML MC SCH (19:33)
[2024-12-15 20:00] VITALS: RESP 16; O2SAT 96
[2024-12-15 22:00] VITALS: BP 141/76; PULSE 96; RESP 16; TEMP 98.4; O2SAT 97
[2024-12-16 05:35] LABS: BASOPHILS % (AUTO) 0.5 % (0-1); EOSINOPHILS # (AUTO) 0.4 X10'3 (0-0.9); EOSINOPHILS % (AUTO) 5.1 % (0-6); HEMATOCRIT 34.1 % (42.0-52.0); HEMOGLOBIN 11.3 g/dl (14.0-17.9); LYMPHOCYTES # (AUTO) 1.4 X10'3 (1.1-4.8); MEAN CORPUSCULAR HEMOGLOBIN 29.1 PG (27.0-31.0); MEAN CORPUSCULAR HGB CONC 33.2 g/dL (33.0-36.5); MEAN CORPUSCULAR VOLUME 87.7 FL (78-98); MEAN PLATELET VOLUME 6.3 FL (7.4-10.4); MONOCYTES # (AUTO) 0.8 X10'3 (0-0.9); MONOCYTES % (AUTO) 10.1 % (2-12); NEUTROPHILS # (AUTO) 5.2 X10'3 (1.8-7.7); NEUTROPHILS % (AUTO) 66.3 % (42-75); PLATELET COUNT 364 X10'3 (140-440); RED BLOOD COUNT 3.89 X10'6 (4.70-6.10); RED CELL DISTRIBUTION WIDTH 14.6 % (11.5-14.5); WHITE BLOOD COUNT 7.8 X10'3 (4.5-11.0)
[2024-12-16 06:00] VITALS: BP 136/92; PULSE 75; RESP 18; TEMP 98; O2SAT 98
[2024-12-16 06:05] LABS: ALANINE AMINOTRANSFERASE 17 U/L (12-78); ALBUMIN/GLOBULIN RATIO 0.6 (1.1-1.5); ALKALINE PHOSPHATASE 58 IU/L (46-116); ANION GAP 5 (8-16); ASPARTATE AMINO TRANSFERASE 12 U/L (10-37); BILIRUBIN,TOTAL 0.5 MG/DL (0.1-1.0); BLOOD UREA NITROGEN 12 MG/DL (7-18); BUN/CREATININE RATIO 16.7 (10.0-20.0); CHLORIDE 105 MMOL/L (99-107); CREATININE 0.72 MG/DL (0.60-1.10); GLUCOSE 85 MG/DL (70-104); SODIUM 138 MMOL/L (135-145); TOTAL CARBON DIOXIDE 27.6 MMOL/L (24-32); TOTAL PROTEIN 5.3 G/DL (6.4-8.2); eCRCL 91 ML/MIN; eGFR > 90 ML/MIN
[2024-12-16] MEDS: VANCOMYCIN LEVEL IV ONE ×2 (11:30→20:22)
[2024-12-16] MEDS ORDERED: oxyCODONE/APAP 10/325mg tablet PO PRN (17:00)
[2024-12-16] MEDS: metroNIDAZOLE 500mg tablet PO SCH (17:10)
[2024-12-16] MEDS: magnesium hydroxide 30ml (MOM) UD suspension PO ONE (17:10)
[2024-12-16 18:00] VITALS: BP 145/92; PULSE 55; RESP 15; TEMP 98.1; O2SAT 95
[2024-12-16] MEDS: oxyCODONE/APAP 10/325mg tablet PO PRN (19:35)
[2024-12-16 20:00] VITALS: RESP 15; O2SAT 95
[2024-12-16] MEDS: tamsulosin 0.4mg capsule PO SCH (20:23)
[2024-12-16 22:00] VITALS: BP 144/98; PULSE 64; RESP 18; TEMP 98.2; O2SAT 97
[2024-12-17] VITALS (7 sets, daily range): BP systolic 124–146; BP diastolic 73–97; PULSE 63–71; RESP 14–18; TEMP 97.6–98.6; O2SAT 95–98
[2024-12-17 05:37] LABS: BASOPHILS % (AUTO) 0.6 % (0-1); EOSINOPHILS # (AUTO) 0.3 X10'3 (0-0.9); EOSINOPHILS % (AUTO) 4.2 % (0-6); HEMATOCRIT 34.1 % (42.0-52.0); HEMOGLOBIN 11.6 g/dl (14.0-17.9); LYMPHOCYTES # (AUTO) 1.1 X10'3 (1.1-4.8); MEAN CORPUSCULAR HEMOGLOBIN 29.3 PG (27.0-31.0); MEAN CORPUSCULAR HGB CONC 33.9 g/dL (33.0-36.5); MEAN CORPUSCULAR VOLUME 86.5 FL (78-98); MEAN PLATELET VOLUME 6.4 FL (7.4-10.4); MONOCYTES # (AUTO) 0.7 X10'3 (0-0.9); MONOCYTES % (AUTO) 8.8 % (2-12); NEUTROPHILS # (AUTO) 5.4 X10'3 (1.8-7.7); NEUTROPHILS % (AUTO) 71.4 % (42-75); PLATELET COUNT 377 X10'3 (140-440); RED BLOOD COUNT 3.94 X10'6 (4.70-6.10); RED CELL DISTRIBUTION WIDTH 14.3 % (11.5-14.5); WHITE BLOOD COUNT 7.6 X10'3 (4.5-11.0)
[2024-12-17 06:04] LABS: ALANINE AMINOTRANSFERASE 14 U/L (12-78); ALBUMIN 2.2 G/DL (3.4-5.0); ALBUMIN/GLOBULIN RATIO 0.6 (1.1-1.5); ALKALINE PHOSPHATASE 62 IU/L (46-116); ANION GAP 4 (8-16); ASPARTATE AMINO TRANSFERASE 16 U/L (10-37); BILIRUBIN,TOTAL 0.5 MG/DL (0.1-1.0); BLOOD UREA NITROGEN 13 MG/DL (7-18); BUN/CREATININE RATIO 19.7 (10.0-20.0); CHLORIDE 104 MMOL/L (99-107); CREATININE 0.66 MG/DL (0.60-1.10); GLUCOSE 101 MG/DL (70-104); SODIUM 137 MMOL/L (135-145); TOTAL CARBON DIOXIDE 28.6 MMOL/L (24-32); TOTAL PROTEIN 5.7 G/DL (6.4-8.2); eCRCL 99 ML/MIN; eGFR > 90 ML/MIN
[2024-12-17] MEDS: folic acid 1mg tablet PO SCH (08:24)
[2024-12-17] MEDS: thiamine 100mg tablet PO SCH (08:25)
[2024-12-17] MEDS: magnesium hydroxide 30ml (MOM) UD suspension PO PRN (08:26)
[2024-12-17] MEDS: levoFLOXACIN 500mg tablet PO SCH (11:15)
[2024-12-17] MEDS ORDERED: LORazepam 1 MG tablet PO PRN (18:30)
[2024-12-17] MEDS ORDERED: LORazepam 2 mg/ml vial IV PRN (18:30)
[2024-12-18 05:00] VITALS: BP 121/79; PULSE 57; RESP 20; TEMP 97.7; O2SAT 97
[2024-12-18 06:15] LABS: BASOPHILS % (AUTO) 0.7 % (0-1); EOSINOPHILS # (AUTO) 0.3 X10'3 (0-0.9); EOSINOPHILS % (AUTO) 4.9 % (0-6); HEMATOCRIT 34.6 % (42.0-52.0); HEMOGLOBIN 11.6 g/dl (14.0-17.9); LYMPHOCYTES % (AUTO) 15.8 % (21-51); MEAN CORPUSCULAR HEMOGLOBIN 29.2 PG (27.0-31.0); MEAN CORPUSCULAR HGB CONC 33.5 g/dL (33.0-36.5); MEAN PLATELET VOLUME 6.6 FL (7.4-10.4); MONOCYTES # (AUTO) 0.6 X10'3 (0-0.9); MONOCYTES % (AUTO) 9.5 % (2-12); NEUTROPHILS # (AUTO) 4.5 X10'3 (1.8-7.7); NEUTROPHILS % (AUTO) 69.1 % (42-75); PLATELET COUNT 394 X10'3 (140-440); RED BLOOD COUNT 3.98 X10'6 (4.70-6.10); RED CELL DISTRIBUTION WIDTH 14.6 % (11.5-14.5); WHITE BLOOD COUNT 6.5 X10'3 (4.5-11.0)
[2024-12-18 06:55] LABS: ALANINE AMINOTRANSFERASE 12 U/L (12-78); ALBUMIN 2.2 G/DL (3.4-5.0); ALBUMIN/GLOBULIN RATIO 0.6 (1.1-1.5); ALKALINE PHOSPHATASE 59 IU/L (46-116); ANION GAP 6 (8-16); ASPARTATE AMINO TRANSFERASE 14 U/L (10-37); BILIRUBIN,TOTAL 0.4 MG/DL (0.1-1.0); BLOOD UREA NITROGEN 16 MG/DL (7-18); BUN/CREATININE RATIO 22.9 (10.0-20.0); CALCIUM 8.2 MG/DL (8.5-10.1); CHLORIDE 103 MMOL/L (99-107); GLUCOSE 98 MG/DL (70-104); POTASSIUM 4.4 MMOL/L (3.5-5.1); SODIUM 137 MMOL/L (135-145); TOTAL CARBON DIOXIDE 27.8 MMOL/L (24-32); TOTAL PROTEIN 5.7 G/DL (6.4-8.2); eCRCL 93 ML/MIN; eGFR > 90 ML/MIN
[2024-12-18 17:00] VITALS: BP 108/78; PULSE 70; RESP 18; TEMP 98.3; O2SAT 100
[2024-12-18 20:00] VITALS: RESP 18; O2SAT 100
[2024-12-18 22:00] VITALS: BP 125/83; PULSE 68; RESP 18; TEMP 98; O2SAT 99
[2024-12-19 06:00] VITALS: BP 122/78; PULSE 63; RESP 18; TEMP 98; O2SAT 95
[2024-12-19 06:04] LABS: BASOPHILS # (AUTO) 0.1 X10'3 (0-0.2); BASOPHILS % (AUTO) 0.9 % (0-1); EOSINOPHILS # (AUTO) 0.4 X10'3 (0-0.9); HEMATOCRIT 35.4 % (42.0-52.0); HEMOGLOBIN 11.9 g/dl (14.0-17.9); LYMPHOCYTES # (AUTO) 1.1 X10'3 (1.1-4.8); LYMPHOCYTES % (AUTO) 17.7 % (21-51); MEAN CORPUSCULAR HEMOGLOBIN 29.2 PG (27.0-31.0); MEAN CORPUSCULAR HGB CONC 33.5 g/dL (33.0-36.5); MEAN CORPUSCULAR VOLUME 87.2 FL (78-98); MEAN PLATELET VOLUME 6.1 FL (7.4-10.4); MONOCYTES # (AUTO) 0.6 X10'3 (0-0.9); MONOCYTES % (AUTO) 10.4 % (2-12); NEUTROPHILS # (AUTO) 4.1 X10'3 (1.8-7.7); PLATELET COUNT 381 X10'3 (140-440); RED BLOOD COUNT 4.06 X10'6 (4.70-6.10); RED CELL DISTRIBUTION WIDTH 14.6 % (11.5-14.5); WHITE BLOOD COUNT 6.2 X10'3 (4.5-11.0)
[2024-12-19 06:39] LABS: ALANINE AMINOTRANSFERASE 12 U/L (12-78); ALBUMIN 2.2 G/DL (3.4-5.0); ALBUMIN/GLOBULIN RATIO 0.6 (1.1-1.5); ALKALINE PHOSPHATASE 53 IU/L (46-116); ANION GAP 5 (8-16); ASPARTATE AMINO TRANSFERASE 17 U/L (10-37); BILIRUBIN,TOTAL 0.3 MG/DL (0.1-1.0); BLOOD UREA NITROGEN 18 MG/DL (7-18); BUN/CREATININE RATIO 26.1 (10.0-20.0); CALCIUM 8.1 MG/DL (8.5-10.1); CHLORIDE 104 MMOL/L (99-107); CREATININE 0.69 MG/DL (0.60-1.10); GLUCOSE 110 MG/DL (70-104); POTASSIUM 4.1 MMOL/L (3.5-5.1); SODIUM 137 MMOL/L (135-145); TOTAL CARBON DIOXIDE 28.1 MMOL/L (24-32); TOTAL PROTEIN 5.7 G/DL (6.4-8.2); eCRCL 95 ML/MIN; eGFR > 90 ML/MIN
[2024-12-19 08:40] VITALS: BP 126/81; PULSE 64
[2024-12-19] MEDS ORDERED: NOR5T PO (10:44)
[2024-12-19] MEDS ORDERED: FOLI1TAB27 PO (10:44)
[2024-12-19] MEDS ORDERED: thiamine tablet PO (10:44)
[2024-12-19] MEDS ORDERED: SILV25CR21 TP (10:44)
[2024-12-19] MEDS ORDERED: LACT1CAP26 PO (10:47)
[2024-12-19] MEDS ORDERED: MULT-1249 PO (12:35)
[2024-12-20] MEDS ORDERED: VANCOMYCIN LEVEL IV ONE (11:30)
== END 2024-12-19 14:17 | disposition home or self-care (01) | DRG 228 ==
LOC: ER 15:25 → ED HOLD 18:37 → ER 20:29 → SUR 3N 12-14 00:50
PROVIDERS: ADMIT Family Medicine; ATTEND Family Medicine
PROC: 0YJ54ZZ Inspection of Right Inguinal Region, Percutaneous Endoscopic Approach (ICD-10-PCS; 2024-12-13)
PROC: 3E0T3BZ Introduction of Anesthetic Agent into Peripheral Nerves and Plexi, Percutaneous Approach (ICD-10-PCS; 2024-12-13)
PROC: 0YQ50ZZ Repair Right Inguinal Region, Open Approach (ICD-10-PCS; principal; 2024-12-13 21:32)
DX: K40.30 Unilateral inguinal hernia, with obstruction, without gangrene, not specified as recurrent (principal); R18.8 Other ascites; F17.200 Nicotine dependence, unspecified, uncomplicated; F19.90 Other psychoactive substance use, unspecified, uncomplicated; N49.2 Inflammatory disorders of scrotum; T24.032A Burn of unspecified degree of left lower leg, initial encounter; X08.8XXA Exposure to other specified smoke, fire and flames, initial encounter; G89.29 Other chronic pain; K21.9 Gastro-esophageal reflux disease without esophagitis; M54.9 Dorsalgia, unspecified; I10 Essential (primary) hypertension; T50.996A Underdosing of other drugs, medicaments and biological substances, initial encounter; R45.1 Restlessness and agitation; Y93.89 Activity, other specified; Y92.89 Other specified places as the place of occurrence of the external cause; Y99.8 Other external cause status; Z53.31 Laparoscopic surgical procedure converted to open procedure; Z59.00 Homelessness unspecified; Z88.8 Allergy status to other drugs, medicaments and biological substances
CPT/HCPCS: 36415; 71045; 74176; 80053; 80202; 80305; 80320; 81003; 83605; 83690; 83735; 83880; 84145; 84484; 85025; 85610; 85651; 87040; 87081; 93306; 94760; 96361; 96374; 97116; 97161; 97530; 99285; A4215; A4314; A4618; A4620; A6223; A6253; A6258; A6446; A6449; G0378; J0131; J0666; J1100; J1171; J1644; J1956; J2003; J2250; J2405; J2704; J3010; J3370; J3372; J3411; J3490; J7030; J7120